=== PATIENT | male | born 1975 | race Two or more races ===

== ENCOUNTER 2022-04-01 19:30 | Emergency (ER) | payer SELFPAY ==
[~2022-04-01] VITALS: Ht 162.6 cm; Wt 97.3 kg
[2022-04-01 23:27] VITALS: BP 132/96
[2022-04-01] MEDS ORDERED: TETANUS-DIPTH-ACEL PERTUSSIS 0.5ML SYR Tdap IM ONE (23:30)
== END 2022-04-01 23:33 | disposition home or self-care (01) ==
LOC: ER 19:38
DX: S81.811A Laceration without foreign body, right lower leg, initial encounter (principal); W25.XXXA Contact with sharp glass, initial encounter; Y93.89 Activity, other specified; Y92.89 Other specified places as the place of occurrence of the external cause; Y99.8 Other external cause status
CPT/HCPCS: 12002; 90471; 90715

== ENCOUNTER 2022-04-09 09:53 | Emergency (ER) | payer MEDICAID ==
[~2022-04-09] VITALS: Ht 165.1 cm; Wt 96.0 kg
[2022-04-09 10:18] VITALS: BP 109/71
== END 2022-04-09 14:38 | disposition home or self-care (01) ==
LOC: ER 09:53
DX: Z48.02 Encounter for removal of sutures (principal)